=== PATIENT | male | born 1975 | race Caucasian/White ===

== ENCOUNTER 2023-03-29 09:34 | Emergency (ER) | payer BC ==
[2023-03-29] MEDS ORDERED: Ketorolac Tromethamine 30 MG/ML VIAL ONE (10:26)
[2023-03-29] MEDS ORDERED: Doxycycline 100 MG CAP PO SCH (12:30)
== END 2023-03-29 12:40 | disposition home or self-care (01) ==
LOC: CSHERS 09:34
DX: L03.114 Cellulitis of left upper limb (principal); E11.9 Type 2 diabetes mellitus without complications; Z87.891 Personal history of nicotine dependence
CPT/HCPCS: 96372; J1885

== ENCOUNTER 2025-07-10 09:28 | Outpatient (CLI) | payer OTHER | END 2025-07-10 09:29 | disposition home or self-care (01) | LOC: CSHSLEEP 09:28 | PROVIDERS: ATTEND Family Medicine | DX: G47.33 Obstructive sleep apnea (adult) (pediatric) (principal); R53.83 Other fatigue; E11.9 Type 2 diabetes mellitus without complications; E66.9 Obesity, unspecified; Z68.43 Body mass index [BMI] 50.0-59.9, adult; R06.83 Snoring; G47.00 Insomnia, unspecified; I10 Essential (primary) hypertension; R09.02 Hypoxemia | CPT/HCPCS: 95810 ==